=== PATIENT | female | born 1980 | race Caucasian/White ===

== ENCOUNTER 2021-12-08 17:23 | Inpatient (IN) | payer OTHER ==
[~2021-12-08 17:23] MED LIST: Iopamidol-370 76% 500 ML 1 ML ONE
[2021-12-08] MEDS ORDERED: Vancomycin 1 GM/200 ML BAG ONE (20:45)
[2021-12-08] MEDS ORDERED: cefTRIAXone\\ROCEPHIN 1 GM VIAL ONE (20:45)
[2021-12-08] MEDS ORDERED: Morphine 4 MG/ML VIAL ONE (20:45)
[2021-12-08 21:40] LABS: #Lymphocytes 1.1 thou/uL (1.20-3.40); #Monocytes 1.1 thou/uL (0.11-0.59); %Basophils 0.1 % (0.0-1.0); %Eosinophils 0.3 % (0.0-10.0); %Lymphocytes 7.1 % (21.0-51.0); %Monocytes 7.4 % (0.0-10.0); %Neutrophils 85.1 % (42.0-75.0); Hemoglobin 10.3 g/dL (12.0-16.0); Mean Corpuscular HGB CONC 35.1 g/dL (32.0-36.0); Mean Corpuscular Hemoglobin 31.9 pg (27.0-31.0); Mean Corpuscular Volume 90.9 fL (78.0-98.0); Mean Platelet Volume 6.4 fL (7.4-10.4); Platelet Count 404 thou/uL (130-400); RBC Distribution Width 11.2 % (11.5-14.5); Red Blood Cell (RBC) Count 3.24 mill/uL (4.20-5.40); White Blood Cell (WBC) Count 15.3 thou/uL (4.8-10.8)
[2021-12-08 22:05] LABS: ALT (SGPT) 14 U/L (8-55); AST (SGOT) 15 U/L (5-34); Albumin 3.6 g/dL (3.5-5.0); Alkaline Phosphatase 107 U/L (40-110); Anion Gap 19 mmol/L (10-20); BUN (Urea Nitrogen) 18 mg/dL (7.0-18.7); Bilirubin, Total 0.3 mg/dL (0.2-1.2); Calc. Creatinine Clearance 0 mL/min (70-130); Calcium 9.1 mg/dL (7.8-10.44); Carbon Dioxide 23 mmol/L (22-29); Chloride 97 mmol/L (98-107); Estimated GFR 114; Globulin 3.9 g/dL (2.4-3.5); Glucose 101 mg/dL (70-105); Potassium 3.8 mmol/L (3.5-5.1); Protein, Total 7.5 g/dL (6.0-8.3); Sodium 135 mmol/L (136-145)
[2021-12-08] MEDS ORDERED: Ketorolac Tromethamine 30 MG/ML VIAL ONE (22:25)
[2021-12-08 22:33] LABS: BHCG - Serum Negative (NEGATIVE); Pregs Control Background? CLEAR/WHITE (CLR/WHITE); Pregs Control Bar Appear? YES (CONTROL BAR)
[2021-12-08] MEDS ORDERED: diphenhydrAMINE 50 MG/ML VIAL ONE (22:42)
[2021-12-08] MEDS ORDERED: EPINEPHrine 1 MG/ML VIAL ONE (22:52)
[2021-12-08] MEDS ORDERED: methylPREDNISolone Sod Succ/PF 125 MG/2 ML VIAL ONE (22:58)
[2021-12-08] MEDS ORDERED: Pantoprazole 40 MG VIAL ONE (22:58)
[2021-12-08] MEDS ORDERED: Famotidine/PF 20 mg/2ml Vial ONE (23:02)
[2021-12-09 00:14] LABS: Bacteria/HPF None Seen HPF (None Seen); Bilirubin Negative (Negative); Blood, Urine Negative (Negative); Clarity Clear (Clear); Glucose, Urine (Dipstick) Normal (Negative); Ketone, Urine 80 mg/dL (Negative); Leukocyte Negative Leu/uL (Negative); Mucous/LPF Rare LPF (<2+); Nitrite Negative (Negative); Protein, Urine (Dipstick) 30 mg/dL (Neg-Trace); Squamous Epithelial 0-3 HPF (0-3); Urobilinogen Normal mg/dL (Less than 2); WBC/HPF 0-3 HPF (0-3)
[2021-12-09 00:19] LABS: RBC/HPF 0-3 HPF (0-3); Specific Gravity, Urine 1.046 (1.002-1.036)
[2021-12-09] MEDS ORDERED: Acetaminophen 325 MG TAB PO PRN (02:19)
[2021-12-09 02:44] LABS: Amphetamine Not Detected (NotDetected); Barbiturates Screen Not Detected (NotDetected); Benzodiazepine Screen Not Detected (NotDetected); Cocaine Metabolite Screen Not Detected (NotDetected); Methadone Not Detected (NotDetected); Methamphetamine Not Detected (NotDetected); Opiate Screen Detected (NotDetected); Oxycodone Screen Not Detected (NotDetected); Phencyclidine (PCP) Not Detected (NotDetected); THC/Cannabinoid Screen Not Detected (NotDetected); Tricyclic Screen Detected (NotDetected)
[2021-12-09] MEDS ORDERED: Ibuprofen 800 MG TAB PO PRN (02:48)
[2021-12-09 03:12] LABS: Acetaminophen Less than 10.0 mcg/mL (10.0-30.0); Alcohol Less than 10 mg/dL (Less than 10); Salicylate Less than 8.0 mg/dL (15.0-30.0)
[2021-12-09] MEDS: Lactated Ringer's 1,000 ML IV SCH ×3 (03:53→19:46)
[2021-12-09] MEDS ORDERED: Acetaminophen 500 MG TAB ONE ×2 (07:29→07:30)
[2021-12-09] MEDS ORDERED: Ibuprofen 800 MG TAB ONE (07:30)
[2021-12-09] MEDS: Ibuprofen 800 MG TAB PO SCH ×3 (07:35→21:55)
[2021-12-09] MEDS: Acetaminophen 500 MG TAB PO SCH ×3 (07:35→21:54)
[2021-12-09 09:53] VITALS: BMI 27.1
[2021-12-09] MEDS: Enoxaparin Sodium 40 MG/0.4 ML SYRINGE SC SCH (10:00)
[2021-12-09] MEDS ORDERED: SODIUM CHLORIDE 0.9% IVPB SCH (10:45)
[2021-12-09] MEDS ORDERED: RIFAMPIN IVPB SCH (10:45)
[2021-12-09] MEDS ORDERED: Heparin 1,000 UNITS/ML VIAL ONE (10:49)
[2021-12-09] MEDS: Bisacodyl 5 MG TAB PO SCH (11:50)
[2021-12-09] MEDS: OXcarbazepine 300 MG TAB PO SCH (11:53)
[2021-12-09] MEDS ORDERED: Magnevist 469MG/ML 20 ML VIAL ONE (13:21)
[2021-12-09 13:35] LABS: HIV (1/2) Antibody/Antigen Non-Reactive (NonReactive); HIV 1/2 INDEX 0.19 S/CO (<1.00)
[2021-12-09 13:39] LABS: Hep C IgG Ab Reflex HepC Qnt (NonReactive); Hep C Index 12.02 S/CO (0-0.79)
[2021-12-09 14:26] LABS: SARS-CoV-2 NAA Rapid Test Not Detected (NotDetected)
[2021-12-09 16:38] LABS: Syphilis Antibody Index 18.98 S/CO (<1.00 Non-Reactive)
[2021-12-09 17:31] LABS: Syphilis Antibody INDETERMINATE (Nonreactive)
[2021-12-10] MEDS: Cyclobenzaprine 10 MG TAB PO PRN ×2 (03:28→17:23)
[2021-12-10] MEDS: Lactated Ringer's 1,000 ML IV SCH ×3 (03:45→20:47)
[2021-12-10] MEDS ORDERED: Gabapentin 300 MG CAP PO SCH ×2 (04:00→20:00)
[2021-12-10] MEDS ORDERED: Morphine 4 MG/ML VIAL SLOW IVP SCH ×2 (05:30→07:15)
[2021-12-10] MEDS: Acetaminophen 500 MG TAB PO SCH ×3 (05:31→20:45)
[2021-12-10] MEDS: Ibuprofen 800 MG TAB PO SCH ×3 (05:32→20:45)
[2021-12-10 09:06] LABS: #Eosinphils 0.1 thou/uL (0.0-0.7); #Lymphocytes 1.2 thou/uL (1.20-3.40); #Monocytes 0.4 thou/uL (0.11-0.59); %Basophils 0.2 % (0.0-1.0); %Eosinophils 0.8 % (0.0-10.0); %Lymphocytes 9.9 % (21.0-51.0); %Monocytes 3.1 % (0.0-10.0); Hemoglobin 9.6 g/dL (12.0-16.0); Mean Corpuscular HGB CONC 33.7 g/dL (32.0-36.0); Mean Corpuscular Hemoglobin 31.2 pg (27.0-31.0); Mean Corpuscular Volume 92.6 fL (78.0-98.0); Mean Platelet Volume 6.3 fL (7.4-10.4); Platelet Count 405 thou/uL (130-400); RBC Distribution Width 11.2 % (11.5-14.5); Red Blood Cell (RBC) Count 3.07 mill/uL (4.20-5.40); White Blood Cell (WBC) Count 11.6 thou/uL (4.8-10.8)
[2021-12-10] MEDS: OXcarbazepine 300 MG TAB PO SCH (09:27)
[2021-12-10] MEDS: Bisacodyl 5 MG TAB PO SCH (09:27)
[2021-12-10 09:37] LABS: ALT (SGPT) 14 U/L (8-55); AST (SGOT) 17 U/L (5-34); Albumin 3.1 g/dL (3.5-5.0); Alkaline Phosphatase 87 U/L (40-110); Anion Gap 14 mmol/L (10-20); BUN (Urea Nitrogen) 8 mg/dL (7.0-18.7); Bilirubin, Total 0.4 mg/dL (0.2-1.2); Calc. Creatinine Clearance 135 mL/min (70-130); Calcium 8.4 mg/dL (7.8-10.44); Carbon Dioxide 23 mmol/L (22-29); Chloride 102 mmol/L (98-107); Estimated GFR 115; Globulin 3.4 g/dL (2.4-3.5); Glucose 129 mg/dL (70-105); Potassium 3.3 mmol/L (3.5-5.1); Protein, Total 6.5 g/dL (6.0-8.3); Sodium 136 mmol/L (136-145)
[2021-12-10] MEDS ORDERED: RIFAMPIN IVPB SCH (11:00)
[2021-12-10] MEDS ORDERED: SODIUM CHLORIDE 0.9% IVPB SCH (11:00)
[2021-12-10] MEDS: oxyCODONE 5 MG TAB PO PRN ×3 (11:35→19:46)
[2021-12-10] MEDS: Enoxaparin Sodium 40 MG/0.4 ML SYRINGE SC SCH (15:20)
[2021-12-11] MEDS: oxyCODONE 5 MG TAB PO PRN ×4 (02:17→20:22)
[2021-12-11] MEDS: Cyclobenzaprine 10 MG TAB PO PRN (02:18)
[2021-12-11] MEDS ORDERED: Morphine 4 MG/ML VIAL SLOW IVP SCH (04:15)
[2021-12-11] MEDS: Ibuprofen 800 MG TAB PO SCH ×3 (06:15→20:22)
[2021-12-11] MEDS: Acetaminophen 500 MG TAB PO SCH ×3 (06:16→20:22)
[2021-12-11 07:08] LABS: #Basophils 0.1 thou/uL (0.0-0.2); #Eosinphils 0.1 thou/uL (0.0-0.7); #Lymphocytes 1.7 thou/uL (1.20-3.40); #Monocytes 0.9 thou/uL (0.11-0.59); #Neutrophils 9.9 thou/uL (1.40-6.50); %Basophils 0.4 % (0.0-1.0); %Eosinophils 1.2 % (0.0-10.0); %Lymphocytes 13.3 % (21.0-51.0); %Monocytes 6.7 % (0.0-10.0); %Neutrophils 78.5 % (42.0-75.0); Hemoglobin 9.4 g/dL (12.0-16.0); Mean Corpuscular HGB CONC 34.1 g/dL (32.0-36.0); Mean Corpuscular Hemoglobin 31.6 pg (27.0-31.0); Mean Corpuscular Volume 92.5 fL (78.0-98.0); Mean Platelet Volume 6.5 fL (7.4-10.4); Platelet Count 384 thou/uL (130-400); RBC Distribution Width 11.4 % (11.5-14.5); Red Blood Cell (RBC) Count 2.98 mill/uL (4.20-5.40); White Blood Cell (WBC) Count 12.6 thou/uL (4.8-10.8)
[2021-12-11] MEDS: Lactated Ringer's 1,000 ML IV SCH (07:22)
[2021-12-11 07:28] LABS: ALT (SGPT) 20 U/L (8-55); AST (SGOT) 25 U/L (5-34); Albumin 2.9 g/dL (3.5-5.0); Alkaline Phosphatase 104 U/L (40-110); Anion Gap 16 mmol/L (10-20); BUN (Urea Nitrogen) 6 mg/dL (7.0-18.7); Bilirubin, Total 0.3 mg/dL (0.2-1.2); Calc. Creatinine Clearance 144 mL/min (70-130); Calcium 8.3 mg/dL (7.8-10.44); Carbon Dioxide 26 mmol/L (22-29); Chloride 97 mmol/L (98-107); Estimated GFR 117; Globulin 3.7 g/dL (2.4-3.5); Glucose 87 mg/dL (70-105); Potassium 3.9 mmol/L (3.5-5.1); Protein, Total 6.6 g/dL (6.0-8.3); Sodium 135 mmol/L (136-145)
[2021-12-11] MEDS: Bisacodyl 5 MG TAB PO SCH (09:12)
[2021-12-11] MEDS: Enoxaparin Sodium 40 MG/0.4 ML SYRINGE SC SCH (09:12)
[2021-12-11] MEDS: OXcarbazepine 300 MG TAB PO SCH (09:12)
[2021-12-11] MEDS ORDERED: oxyCODONE ER 10 MG TAB PO SCH (10:00)
[2021-12-11] MEDS: Pregabalin 75 MG CAP PO SCH (20:22)
[2021-12-11] MEDS: oxyCODONE ER 10 MG TAB PO SCH (21:28)
[2021-12-12] MEDS: oxyCODONE 5 MG TAB PO PRN ×5 (00:31→22:03)
[2021-12-12] MEDS: Cyclobenzaprine 10 MG TAB PO PRN ×2 (04:33→20:10)
[2021-12-12] MEDS: Acetaminophen 500 MG TAB PO SCH ×3 (06:01→22:04)
[2021-12-12] MEDS: Ibuprofen 800 MG TAB PO SCH ×3 (06:01→22:04)
[2021-12-12 07:25] LABS: Hemoglobin 10.5 g/dL (12.0-16.0); Mean Corpuscular HGB CONC 32.1 g/dL (32.0-36.0); Mean Corpuscular Volume 93.6 fL (78.0-98.0); Mean Platelet Volume 6.8 fL (7.4-10.4); Platelet Count 413 thou/uL (130-400); RBC Distribution Width 11.5 % (11.5-14.5); Red Blood Cell (RBC) Count 3.48 mill/uL (4.20-5.40); White Blood Cell (WBC) Count 9.7 thou/uL (4.8-10.8)
[2021-12-12 07:39] LABS: ALT (SGPT) 21 U/L (8-55); AST (SGOT) 24 U/L (5-34); Albumin 3.3 g/dL (3.5-5.0); Alkaline Phosphatase 119 U/L (40-110); Anion Gap 16 mmol/L (10-20); BUN (Urea Nitrogen) 11 mg/dL (7.0-18.7); Bilirubin, Total 0.3 mg/dL (0.2-1.2); Calc. Creatinine Clearance 135 mL/min (70-130); Carbon Dioxide 25 mmol/L (22-29); Chloride 100 mmol/L (98-107); Estimated GFR 115; Globulin 4.6 g/dL (2.4-3.5); Glucose 85 mg/dL (70-105); Protein, Total 7.9 g/dL (6.0-8.3); Sodium 137 mmol/L (136-145)
[2021-12-12] MEDS: OXcarbazepine 300 MG TAB PO SCH (09:30)
[2021-12-12] MEDS: oxyCODONE ER 10 MG TAB PO SCH ×2 (09:31→20:10)
[2021-12-12] MEDS: Pregabalin 75 MG CAP PO SCH ×2 (09:31→20:12)
[2021-12-12] MEDS: Bisacodyl 5 MG TAB PO SCH (09:32)
[2021-12-12] MEDS: Enoxaparin Sodium 40 MG/0.4 ML SYRINGE SC SCH (09:36)
[2021-12-12] MEDS ORDERED: PROPOFOL 200 MG/20 ML VIAL ONE (11:28)
[2021-12-12 12:20] LABS: Band 9 % (5-11); Eosinophils 2 % (0-10); Lymphocytes 13 % (21-51); MDiff Complete? YES; Monocytes 9 % (0-10); Neutrophil 67 % (42-75); Platelet Morphology Comment Appears Increased; Polychromasia SLIGHT = 2-3 cells (100X) (0-2/hpf)
[2021-12-13] MEDS: oxyCODONE 5 MG TAB PO PRN (03:40)
[2021-12-13] MEDS: Acetaminophen 500 MG TAB PO SCH ×3 (06:12→19:02)
[2021-12-13] MEDS: Ibuprofen 800 MG TAB PO SCH ×3 (06:12→21:36)
[2021-12-13] MEDS: Pregabalin 75 MG CAP PO SCH ×2 (08:58→21:35)
[2021-12-13] MEDS: Bisacodyl 5 MG TAB PO SCH (08:58)
[2021-12-13] MEDS: OXcarbazepine 300 MG TAB PO SCH (08:58)
[2021-12-13] MEDS: oxyCODONE ER 10 MG TAB PO SCH ×2 (08:59→21:33)
[2021-12-13] MEDS ORDERED: Gabapentin 300 MG CAP PO SCH (09:00)
[2021-12-13] MEDS: Enoxaparin Sodium 40 MG/0.4 ML SYRINGE SC SCH (09:00)
[2021-12-13] MEDS: Lidocaine 5% Patch TD SCH (09:35)
[2021-12-13 09:49] LABS: #Eosinphils 0.3 thou/uL (0.0-0.7); #Lymphocytes 1.7 thou/uL (1.20-3.40); #Monocytes 0.5 thou/uL (0.11-0.59); #Neutrophils 6.7 thou/uL (1.40-6.50); %Eosinophils 2.8 % (0.0-10.0); %Lymphocytes 18.1 % (21.0-51.0); %Monocytes 5.9 % (0.0-10.0); %Neutrophils 73.3 % (42.0-75.0); Hemoglobin 9.6 g/dL (12.0-16.0); Mean Corpuscular HGB CONC 33.6 g/dL (32.0-36.0); Mean Corpuscular Hemoglobin 30.9 pg (27.0-31.0); Mean Corpuscular Volume 92.2 fL (78.0-98.0); Mean Platelet Volume 5.7 fL (7.4-10.4); Platelet Count 493 thou/uL (130-400); RBC Distribution Width 11.4 % (11.5-14.5); White Blood Cell (WBC) Count 9.2 thou/uL (4.8-10.8)
[2021-12-13 10:12] LABS: ALT (SGPT) 13 U/L (8-55); AST (SGOT) 10 U/L (5-34); Albumin 3.1 g/dL (3.5-5.0); Alkaline Phosphatase 101 U/L (40-110); Anion Gap 14 mmol/L (10-20); BUN (Urea Nitrogen) 11 mg/dL (7.0-18.7); Bilirubin, Total 0.3 mg/dL (0.2-1.2); Calc. Creatinine Clearance 139 mL/min (70-130); Calcium 8.8 mg/dL (7.8-10.44); Carbon Dioxide 29 mmol/L (22-29); Chloride 97 mmol/L (98-107); Estimated GFR 116; Globulin 3.9 g/dL (2.4-3.5); Glucose 104 mg/dL (70-105); Potassium 3.9 mmol/L (3.5-5.1); Sodium 136 mmol/L (136-145)
[2021-12-13] MEDS ORDERED: Bicillin LA 2.4 MILL.UNITS/4 ML SYRINGE IM SCH (10:30)
[2021-12-13] MEDS ORDERED: EPINEPHrine 1 mg/ml MDV (1ml Charge) IM PRN (10:36)
[2021-12-13] MEDS ORDERED: diphenhydrAMINE 50 MG/ML VIAL IVP PRN (10:37)
[2021-12-13] MEDS ORDERED: Famotidine/PF 20 mg/2ml Vial SLOW IVP PRN (10:37)
[2021-12-13] MEDS: Cyclobenzaprine 10 MG TAB PO PRN (14:45)
[2021-12-13] MEDS ORDERED: EPINEPHrine 1 MG/ML AMP IM PRN (16:44)
[2021-12-13] MEDS: Transdermal Patch Removal TOP SCH (21:36)
[2021-12-14] MEDS: Acetaminophen 500 MG TAB PO SCH ×4 (00:10→21:08)
[2021-12-14] MEDS: Cyclobenzaprine 10 MG TAB PO PRN ×2 (00:11→14:43)
[2021-12-14 04:51] LABS: #Eosinphils 0.3 thou/uL (0.0-0.7); #Lymphocytes 1.9 thou/uL (1.20-3.40); #Monocytes 0.6 thou/uL (0.11-0.59); #Neutrophils 5.2 thou/uL (1.40-6.50); %Basophils 0.1 % (0.0-1.0); %Eosinophils 3.2 % (0.0-10.0); %Monocytes 7.6 % (0.0-10.0); Hemoglobin 9.4 g/dL (12.0-16.0); Mean Corpuscular HGB CONC 34.3 g/dL (32.0-36.0); Mean Corpuscular Hemoglobin 31.5 pg (27.0-31.0); Mean Corpuscular Volume 91.9 fL (78.0-98.0); Mean Platelet Volume 5.6 fL (7.4-10.4); Platelet Count 504 thou/uL (130-400); RBC Distribution Width 11.3 % (11.5-14.5); Red Blood Cell (RBC) Count 2.99 mill/uL (4.20-5.40)
[2021-12-14 05:11] LABS: ALT (SGPT) 13 U/L (8-55); AST (SGOT) 13 U/L (5-34); Albumin 3.1 g/dL (3.5-5.0); Alkaline Phosphatase 92 U/L (40-110); Anion Gap 12 mmol/L (10-20); BUN (Urea Nitrogen) 11 mg/dL (7.0-18.7); Bilirubin, Total 0.3 mg/dL (0.2-1.2); Calc. Creatinine Clearance 141 mL/min (70-130); Carbon Dioxide 29 mmol/L (22-29); Chloride 99 mmol/L (98-107); Estimated GFR 116; Globulin 3.9 g/dL (2.4-3.5); Glucose 93 mg/dL (70-105); Sodium 136 mmol/L (136-145)
[2021-12-14] MEDS ORDERED: oxyCODONE ER 10 MG TAB PO PRN ×2 (05:16→05:27)
[2021-12-14] MEDS: Ibuprofen 800 MG TAB PO SCH ×3 (06:04→21:08)
[2021-12-14] MEDS ORDERED: Senokot 8.6 MG TAB PO PRN (08:21)
[2021-12-14] MEDS: Enoxaparin Sodium 40 MG/0.4 ML SYRINGE SC SCH (08:44)
[2021-12-14] MEDS: Bisacodyl 5 MG TAB PO SCH (08:44)
[2021-12-14] MEDS: OXcarbazepine 300 MG TAB PO SCH (08:45)
[2021-12-14] MEDS: Pregabalin 75 MG CAP PO SCH ×2 (08:45→21:08)
[2021-12-14] MEDS: HYDROcodone/Acetaminophen 5/325 mg Tablet PO PRN ×2 (08:55→18:02)
[2021-12-14] MEDS: Polyethylene Glycol 3350 17 GM Packet PO SCH (08:56)
[2021-12-14] MEDS: Lidocaine 5% Patch TD SCH (14:30)
[2021-12-14] MEDS: Transdermal Patch Removal TOP SCH (21:09)
[2021-12-15] MEDS: HYDROcodone/Acetaminophen 5/325 mg Tablet PO PRN ×2 (02:07→10:26)
[2021-12-15 04:16] LABS: #Eosinphils 0.2 thou/uL (0.0-0.7); #Lymphocytes 1.9 thou/uL (1.20-3.40); #Monocytes 0.6 thou/uL (0.11-0.59); #Neutrophils 4.3 thou/uL (1.40-6.50); %Basophils 0.1 % (0.0-1.0); %Eosinophils 3.5 % (0.0-10.0); %Lymphocytes 26.8 % (21.0-51.0); %Monocytes 8.4 % (0.0-10.0); %Neutrophils 61.3 % (42.0-75.0); Hemoglobin 9.4 g/dL (12.0-16.0); Mean Corpuscular HGB CONC 34.6 g/dL (32.0-36.0); Mean Corpuscular Hemoglobin 31.9 pg (27.0-31.0); Mean Corpuscular Volume 92.1 fL (78.0-98.0); Mean Platelet Volume 5.6 fL (7.4-10.4); Platelet Count 482 thou/uL (130-400); RBC Distribution Width 11.2 % (11.5-14.5); Red Blood Cell (RBC) Count 2.95 mill/uL (4.20-5.40)
[2021-12-15 04:50] LABS: ALT (SGPT) 15 U/L (8-55); AST (SGOT) 13 U/L (5-34); Albumin 3.1 g/dL (3.5-5.0); Alkaline Phosphatase 86 U/L (40-110); Anion Gap 14 mmol/L (10-20); BUN (Urea Nitrogen) 16 mg/dL (7.0-18.7); Bilirubin, Total 0.2 mg/dL (0.2-1.2); Calc. Creatinine Clearance 141 mL/min (70-130); Calcium 9.1 mg/dL (7.8-10.44); Carbon Dioxide 26 mmol/L (22-29); Chloride 99 mmol/L (98-107); Estimated GFR 116; Globulin 3.9 g/dL (2.4-3.5); Glucose 91 mg/dL (70-105); Potassium 4.1 mmol/L (3.5-5.1); Sodium 135 mmol/L (136-145)
[2021-12-15] MEDS: Ibuprofen 800 MG TAB PO SCH ×3 (05:47→23:10)
[2021-12-15] MEDS: Acetaminophen 500 MG TAB PO SCH ×3 (05:47→20:26)
[2021-12-15] MEDS: Cyclobenzaprine 10 MG TAB PO PRN ×2 (08:17→17:30)
[2021-12-15] MEDS: Enoxaparin Sodium 40 MG/0.4 ML SYRINGE SC SCH (09:09)
[2021-12-15] MEDS: OXcarbazepine 300 MG TAB PO SCH (09:10)
[2021-12-15] MEDS: Pregabalin 75 MG CAP PO SCH ×2 (09:11→20:23)
[2021-12-15] MEDS: Polyethylene Glycol 3350 17 GM Packet PO SCH (09:12)
[2021-12-15] MEDS: Lidocaine 5% Patch TD SCH (09:15)
[2021-12-15] MEDS: Bisacodyl 5 MG TAB PO SCH (10:29)
[2021-12-15] MEDS: Acetaminophen/Codeine 30-300mg Tablet PO PRN (20:23)
[2021-12-15] MEDS: Transdermal Patch Removal TOP SCH (20:23)
[2021-12-16] MEDS: Acetaminophen/Codeine 30-300mg Tablet PO PRN ×2 (02:12→07:56)
[2021-12-16] MEDS: Ibuprofen 800 MG TAB PO SCH ×2 (06:17→14:29)
[2021-12-16] MEDS: Acetaminophen 500 MG TAB PO SCH (06:18)
[2021-12-16 06:34] LABS: #Eosinphils 0.3 thou/uL (0.0-0.7); #Lymphocytes 1.9 thou/uL (1.20-3.40); #Monocytes 0.7 thou/uL (0.11-0.59); #Neutrophils 6.1 thou/uL (1.40-6.50); %Basophils 0.3 % (0.0-1.0); %Eosinophils 2.9 % (0.0-10.0); %Lymphocytes 21.3 % (21.0-51.0); %Monocytes 8.1 % (0.0-10.0); %Neutrophils 67.4 % (42.0-75.0); Hemoglobin 10.1 g/dL (12.0-16.0); Mean Corpuscular HGB CONC 34.5 g/dL (32.0-36.0); Mean Corpuscular Hemoglobin 31.7 pg (27.0-31.0); Mean Corpuscular Volume 91.7 fL (78.0-98.0); Mean Platelet Volume 5.7 fL (7.4-10.4); Platelet Count 551 thou/uL (130-400); RBC Distribution Width 11.3 % (11.5-14.5); White Blood Cell (WBC) Count 9.1 thou/uL (4.8-10.8)
[2021-12-16 06:54] LABS: ALT (SGPT) 13 U/L (8-55); AST (SGOT) 13 U/L (5-34); Albumin 3.4 g/dL (3.5-5.0); Alkaline Phosphatase 89 U/L (40-110); Anion Gap 14 mmol/L (10-20); BUN (Urea Nitrogen) 12 mg/dL (7.0-18.7); Bilirubin, Total 0.2 mg/dL (0.2-1.2); Calc. Creatinine Clearance 129 mL/min (70-130); Calcium 9.5 mg/dL (7.8-10.44); Carbon Dioxide 27 mmol/L (22-29); Chloride 96 mmol/L (98-107); Estimated GFR 114; Globulin 4.3 g/dL (2.4-3.5); Glucose 88 mg/dL (70-105); Potassium 4.4 mmol/L (3.5-5.1); Protein, Total 7.7 g/dL (6.0-8.3); Sodium 133 mmol/L (136-145)
[2021-12-16] MEDS: Pregabalin 75 MG CAP PO SCH (07:54)
[2021-12-16] MEDS: Bisacodyl 5 MG TAB PO SCH (07:54)
[2021-12-16] MEDS: OXcarbazepine 300 MG TAB PO SCH (07:54)
[2021-12-16] MEDS: Polyethylene Glycol 3350 17 GM Packet PO SCH (07:55)
[2021-12-16] MEDS: Enoxaparin Sodium 40 MG/0.4 ML SYRINGE SC SCH (07:55)
[2021-12-16] MEDS: Lidocaine 5% Patch TD SCH (07:55)
[2021-12-16] MEDS: Cyclobenzaprine 10 MG TAB PO PRN ×2 (08:02→14:30)
[2021-12-16] MEDS ORDERED: Acetaminophen 500 MG TAB PO SCH (08:43)
[2021-12-16] MEDS ORDERED: Acetaminophen 325 MG TAB PO SCH (14:00)
[2021-12-16 16:18] VITALS: BP 107/70; TEMP 97.7
[2021-12-17 09:38] LABS: Hep C PCR-Quant HCV Not Detected IU/mL (.)
== END 2021-12-16 17:53 | DRG 871 ==
LOC: ERS 17:23 → ERHOLD 12-09 02:39 → EEVIPCON 12-09 02:39 → 2SW 12-09 14:13
PROVIDERS: ADMIT Family Medicine; ATTEND Family Medicine
PROC: 3E033XZ Introduction of Vasopressor into Peripheral Vein, Percutaneous Approach (ICD-10-PCS; 2021-12-09)
PROC: 3E03329 Introduction of Other Anti-infective into Peripheral Vein, Percutaneous Approach (ICD-10-PCS; 2021-12-09)
PROC: 02HV33Z Insertion of Infusion Device into Superior Vena Cava, Percutaneous Approach (ICD-10-PCS; principal; 2021-12-10)
PROC: B548ZZA Ultrasonography of Superior Vena Cava, Guidance (ICD-10-PCS; 2021-12-10)
PROC: B24BZZ4 Ultrasonography of Heart with Aorta, Transesophageal (ICD-10-PCS; 2021-12-12)
DX: A41.01 Sepsis due to Methicillin susceptible Staphylococcus aureus (principal); G06.2 Extradural and subdural abscess, unspecified; M46.26 Osteomyelitis of vertebra, lumbar region; A41.9 Sepsis, unspecified organism; Z20.822 Contact with and (suspected) exposure to COVID-19; R65.20 Severe sepsis without septic shock; G40.909 Epilepsy, unspecified, not intractable, without status epilepticus; K59.00 Constipation, unspecified; M46.56 Other infective spondylopathies, lumbar region; B18.2 Chronic viral hepatitis C; Z88.1 Allergy status to other antibiotic agents; Z88.2 Allergy status to sulfonamides; Z79.899 Other long term (current) drug therapy
CPT/HCPCS: 36415; 36569; 72158; 74177; 76856; 80053; 80306; 80307; 81003; 81015; 82550; 83605; 84703; 85025; 85652; 86140; 86593; 86780; 86803; 87040; 87077; 87086; 87149; 87186; 87389; 87522; 87811; 93005; 93010; 93306; 93312; 96361; 96365; 96372; 96375; A9579; C1751; C9113; J0171; J0561; J0696; J0878; J1200; J1644; J1650; J1885; J2270; J2704; J2930; J3370; J3490; J7050; J7120; Q9967; S0028; U0002